=== PATIENT | male | born 1985 | race Caucasian/White ===

== ENCOUNTER → 2016-10-02 | Outpatient (CLI) | payer OTHER, BC ==
[~2016-10-02] MED LIST: BACI28.32 EXT; CITA40TA5 PO
[2016-10-03 08:34] VITALS: BP 136/91
--- NOTE | 2016-10-03 08:34 | Urgent Care T Sheet Gen (E) ---
Intake General Temperature (Fahrenheit): 98.1 Pulse: 69 Blood Pressure Systolic: 136 Blood Pressure Diastolic: 91 Respirations: 19 SPO2: 97 Chief Complaint: smashed finger in car door, stitches? Source: Caregiver (), Patient Exam Limitations: No limitations History of Present Illness Initial Comments Pt reports he was going to work when he accidently shut his car door on his L index finger. The flesh was trapped, so he pulled it free, and it ripped along the pad. He was trying to bandage this himself but the more he looked at it, the more it seemed to gape open and he thinks it might need stitches to hold it shut. His says he does this kind of thing all the time but it takes a lot to bring him in to be seen. Pt says his last tetanus shot was Apr 2012, for a similar injury. Onset & Duration: Hours (2 hours or so) Timing: Still present Recent Trauma: Yes (see above) Allergies: Coded Allergies: No Known Drug Allergies (Unverified , 10/03/16) Home Meds Active Scripts Bacitracin Zinc (Bacitracin Ointment)15 Gm Oint1 Inch EXT Q6H 7 Days Ref 0 Prov:FRANCESCA JAMISON MD 04/15/12 Reported Medications Citalopram Hydrobromide 40 Mg [id number] Mg PO DAILY 10/03/16 Respiratory Constitutional Symptoms: No syptoms reported Musculoskeletal: Other (L index finger is swollen) see HPI Skin: See HPI Neurological: No Numbness, No Paresthesia, No Weakness All Other Systems Reviewed Remaining Systems: All other systems reviewed with negative findings Past [id number]-[id number] Hx Immunizations Up to Date Tetanus Booster (DTaP): Up To Date (Apr 2012) Physical Exam Physical Exam General Appearance: WD/WN Mild distress Eyes, Ears, Nose, Throat Ex: PERRL/EOMI Skin Exam: Normal color Warm/dry/intact (apart from laceration to L index finger anterior ) No rashes Extremity Exam: Full range of motion Normal capillary refill Laceration (of L index finger, anterior) Tenderness (above and below laceration) Swelling (of L index from the PIP joint and distal) Neurologic/Psychiatric Exam: Oriented times 4 No motor deficits No sensory deficits Mood/affect nml Procedures/Interventions Laceration Repair : Location Modifier: Left, Anterior, Distal Wound Location: Finger Type: Laceration Wound Appearance: Well Approximated, Dirty/Debris Noted, Bleeding (mildly) Laceration Depth: Superficial (but subcutaneous fat protruding through dermis) Lesion Length: 1.9 Laceration Explored: Clean, No foreign body removed Skin Prep Used: Hibiclens Anesthesia: 1% Lidocaine Volume of Anesthetic (mls): 4 Wound Debridement: Minimal Suture: Ethlion Suture Size: 4-0 Number of Sutures: 9 Sterile Dressing Applied: Yes Progress After obtaining verbal consent from pt, applied digital block with lidocaine 1% and washed laceration and surrounding skin. Debrided irregular edge of dermis and also some subcutaneous adipose tissue. Sutured with Ethilon 4-0, 9 stitches , resulting in good approximation of edges across the entire pad. Dressed with Bacitracin ointment and sterile nonstick pad, and wrapped with gauze. Departure Urgent Care Impression Chief Complaint: smashed finger in car door, stitches? Impression: Primary Impression: Laceration of left index finger w/o foreign body w/o damage to nail Qualified Code: S61.211A - Laceration without foreign body of left index finger without damage to nail, initial encounter Departure Disposition: 01 HOME OR SELF-CARE Condition: Stable Referrals: ESTEPHANIA ST MD (PCP) Additional Instructions: Discussed with pt that he may have some numbness around the laceration, as he may have severed some nerves in that area, but I think he will otherwise recover well. He did not have any change in sensation toward the tip of his finger, and also does not appear to have any damage to the tendons or bone. Instructed him to keep this clean and dry. After 24 hours he may change the bandage, and after 48 hours the bandage can be removed, but he is not to immerse the laceration in water until the stitches are removed, and he is to cover the wound whenever he is doing dirty work until it is healed. Note given for work to this effect. He may shower or wash his hands as usual after 24 hours. He can also use Tylenol or ibuprofen for pain as needed. Follow up for any increased pain, swelling, redness, pus, numbness, or any signs of infection or poor healing, otherwise return in 7-10 days for suture removal. Pt states understanding and agrees to plan. All questions answered. End of report . THAD POWELL October 02, 2016 20:54
== END ==
LOC: MHUC 18:47
PROVIDERS: ATTEND Physician Assistant Medical
DX: S61.211A Laceration without foreign body of left index finger without damage to nail, initial encounter (principal); W23.0XXA Caught, crushed, jammed, or pinched between moving objects, initial encounter
CPT/HCPCS: 12001; 99213